=== PATIENT | female | born 1940 | race Caucasian/White ===

== ENCOUNTER 2020-06-06 18:03 | Emergency (ER) | payer MEDICARE, BC ==
[~2020-06-06] VITALS: Ht 160 cm; Wt 82.0 kg
[2020-06-06] MEDS ORDERED: DEXAMETHASONE 4MG/ML 1ML VIAL IM ONE (19:15)
[2020-06-06 20:35] LABS: BASOPHILS % 0.9 % (0.0-2.0); EOSINOPHILS % 0.6 % (0.0-5.0); HEMATOCRIT. 37.6 % (36.0-48.0); HEMOGLOBIN. 13.2 g/dL (12.0-16.0); LYMPHOCYTES % 13.7 % (20.0-50.0); MEAN CORPUSCULAR HEMOGLOBIN 32.9 pg (28.0-32.0); MEAN PLATELET VOLUME 6.9 fl (7.4-10.4); MONOCYTES % 9.3 % (2.0-8.0); NEUTROPHILS % 75.5 % (40.0-76.0); PLATELET 284 x1000/uL (130-400); RED CELL DISTRIBUTION WIDTH 13.3 % (11.6-14.6)
[2020-06-06 20:47] LABS: CHLORIDE 102 mEq/L (98-107)
[2020-06-06 21:50] VITALS: BP 122/59
[2020-06-06] MEDS ORDERED: POTASSIUM CHLORIDE 20MEQ TABLET SR PO NR (22:45)
== END 2020-06-06 22:11 | disposition home or self-care (01) ==
LOC: ER 18:03
DX: M10.071 Idiopathic gout, right ankle and foot (principal); Z88.0 Allergy status to penicillin
CPT/HCPCS: 36415; 73630; 80053; 84550; 85025; 85651; 86140; 93970; 96372; 99285; J1100